=== PATIENT | male | born 1970 | race Caucasian/White ===

== ENCOUNTER → 2021-01-03 08:09 | Outpatient (CLI) | payer OTHER, MEDICAID, SELFPAY ==
[2021-01-03 09:37] LABS: Add Manual Diff / Slide Review NO; Basophils Absolute Auto 100 /uL (0-100); Basophils Percent Auto 1.2 % (0-2); Eosinophils Absolute Auto 300 /uL (0-450); Hematocrit 39.2 % (41-53); Hemoglobin 12.9 g/dL (13.5-17.5); Lymphocytes Absolute Auto 1100 /uL (1100-4500); Lymphocytes Percent Auto 12.4 % (25-40); Mean Corpuscular Hemoglobin 28.3 PG (26-34); Mean Corpuscular Volume 85.8 fL (80-100); Monocytes Absolute Auto 600 /uL (0-900); Monocytes Percent Auto 7.2 % (3-14); Neutrophils Absolute Auto 6400 /uL (1500-7000); Neutrophils Percent Auto 75.2 % (50-75); Platelet Count 212 X10^3/uL (150-400); Red Blood Cell Count 4.57 X10^6/uL (4.5-5.9); Red Cell Distribution Width 14.1 % (11.6-14.8); White Blood Cell Count 8.5 X10^3/uL (4.5-11.0)
[2021-01-03 09:57] LABS: Erythrocyte Sedimentation Rate 24 MM/HR (0-15)
[2021-01-03 09:58] LABS: Alanine Aminotransferase 23 IU/L (<50); Albumin 4.2 g/dL (3.5-5.0); Albumin Globulin Ratio 1.2 (1.0-2.8); Alkaline Phosphatase 81 U/L (38-126); Aspartate Aminotransferase 21 IU/L (17-59); BUN Creatinine Ratio 27.2 (6-22); Bilirubin Total 0.5 mg/dL (0.2-1.3); Blood Urea Nitrogen 22 mg/dL (9-20); C-Reactive Protein Quant 3.6 mg/dL (<1.0); Carbon Dioxide 24 mmol/L (22-32); Chloride 101 mmol/L (98-107); Cholesterol 214 mg/dL (140-199); Estimated Glomerular Filt Rate > 60.0 mL/min (>60); Globulin 3.4 g/dL (1.7-4.1); Glucose 209 mg/dL (70-100); HDL Cholesterol 31 mg/dL (40-60); HEMOLYSIS < 15 (0-50); LDL Cholesterol Calculated 148 mg/dL (<100); Potassium 4.2 mmol/L (3.4-5.1); Sodium 135 mmol/L (137-145); Total Protein 7.6 g/dL (6.3-8.2); Triglycerides 175 mg/dL (35-150)
[2021-01-03 10:00] LABS: NT-proBNP (BNP-Adult 18+) 795 pg/mL (<125)
[2021-01-03 10:06] LABS: Creatinine Urine Random 245.9 mg/dL
[2021-01-03 10:23] LABS: TSH w/ Reflex to FT4 3.71 uIU/mL (0.47-4.68)
[2021-01-03 10:26] LABS: Microalbumi Creatinin Ratio Ur 138.2 ug/mg CR (<30)
[2021-01-03 14:52] LABS: Hemoglobin A1C% w Est Avg Glu 8.8 % (4.0-6.0)
[2021-01-04 16:08] LABS: SARS CoV19 IgG Negative (Negative)
[2021-01-05 16:35] LABS: ANA Screen, IFA Negative (.)
== END ==
PROVIDERS: PCP Family Medicine; Referring Provider Family Medicine; Visit Provider Family Medicine
DX: E66.09 Other obesity due to excess calories (principal); I10 Essential (primary) hypertension; R06.00 Dyspnea, unspecified
CPT/HCPCS: 36415; 80053; 80061; 82043; 82570; 83036; 83880; 84443; 85025; 85651; 86038; 86140; 86769

== ENCOUNTER → 2021-02-01 08:53 | Outpatient (CLI) | payer OTHER, MEDICAID, SELFPAY ==
--- NOTE | 2021-02-01 08:58 | DI.RAD.S_ITS ---
PROCEDURE: XR CHEST 2V INDICATIONS: difficulty breathing TECHNIQUE: 2 views of the chest were acquired. COMPARISON: None. FINDINGS: Surgical changes and devices: None. Lungs and pleura: Diffuse opacity bilaterally. Suspect Kristopher B lines. Prominent hilar pulmonary vasculature. No pleural effusions or pneumothorax. Mediastinum: Mediastinal contours are normal. Heart size is enlarged. Bones and chest wall: No suspicious bony abnormalities. Soft tissues appear unremarkable. IMPRESSION: Cardiomegaly. Diffuse opacity bilaterally with suspected Kristopher B lines. Findings most compatible with fluid overload/CHF. Infectious/inflammatory etiology could have a similar appearance. Dictated by: Sukhwinder Messina M.D. on 02/01/2021 at 9:35 Approved by: Sukhwinder Messina M.D. on 02/01/2021 at 9:37
== END ==
PROVIDERS: PCP Family Medicine; Referring Provider Family Medicine; Visit Provider Family Medicine
DX: R06.02 Shortness of breath (principal); I51.7 Cardiomegaly; R06.00 Dyspnea, unspecified; I10 Essential (primary) hypertension
CPT/HCPCS: 71046